=== PATIENT | female | born 1990 | race Asian ===

== ENCOUNTER 2023-01-07 13:35 | Inpatient (IN) | payer OTHER ==
[~2023-01-07] VITALS: Ht 165.1 cm; Wt 98.2 kg
[2023-01-10] VITALS (41 sets, daily range): BP systolic 100–151; BP diastolic 57–119; PULSE 60–124; TEMP 97.6–99
--- NOTE | 2023-01-10 07:00 | NUR ---
PT AMBULATING TO THE ROOM WITH SPOUSE. PT DENIES LEAKING OF FLUIDS OR CONTRACTIONS, AND HAS FELT MOVEMENT.
[2023-01-10 07:35] LABS: BASO % 0.2 % (0.0-2.0); EOS # 0.1 K/mm3 (0.0-0.7); EOS % 1.3 % (0.0-4.0); GRAN # 6.6 K/mm3 (1.4-6.5); HEMOGLOBIN 11.3 g/dl (12.5-16.0); LYMPH # 1.9 K/mm3 (1.2-3.4); LYMPH % 19.9 % (20.0-51.0); MEAN CELL VOLUME 83 fl (80.0-100.0); MEAN CORPUSCULAR HEMOGLOBIN 29 pg (27-31); MEAN CORPUSCULAR HGB CONC 35 g/dl (33.0-37.0); MEAN PLATELET VOLUME 11.4 fl (7.4-10.4); MONO # 0.7 K/mm3 (0.1-0.6); MONO % 7.9 % (1.7-9.3); PLATELET COUNT 165 K/mm3 (130-400); RED BLOOD COUNT 3.94 M/mm3 (4.10-5.30); REDCELL DISTRIBUTION WIDTH-CV 12.4 % (11.5-14.5)
[2023-01-10] MEDS ORDERED: PRENATAL TABLET PO (07:40)
[2023-01-10 07:46] LABS: HEMATOCRIT 32.7 % (37.0-47.0)
--- NOTE | 2023-01-10 09:55 | NUR ---
DR. ALFARO AT BESIDE, SVE 2-3, 90, -2. ATTEMPTED AROM AT THIS TIME, UNSURE IF SUCCESSFUL, PT UNABLE TO TOLERATE SVE. STRONG PALPABLE CONTRACTIONS. DO NOT START PIT AT 1145 PREVIOUSLY PLANNED. CONTINUE WITH POC, VORB PER DR. ALFARO. PT MAY HAVE EPIDURAL WHEN DESIRED.
--- NOTE | 2023-01-10 11:00 | NUR ---
PT TO SITTING POSITION FOR EPIDURAL PLACEMENT. DIFFICULTY TRACING EFM D/T MATERNAL POSITIONING. SAHIL RUDOLPH EDUCATED PT REGARDING PLACEMENT, CONSENT SIGNED. PT TOLERATED PROCEDURE. 1024 SINGLE SHOT PER SAHIL RUDOLPH. LR BOLUS INFUSING AT THIS TIME. 1056 EPHEDRINE ADMINSTERED X1 AT THIS TIME FOR DECREASED HEART TONES AND DROP IN MATERNAL BLOOD PRESSURE. EFM TRACING CATEGORY 1 FOLLOWING ADMINISTRATION. PT PLACED IN LL TO CONTINUE RECOVERY.
--- NOTE | 2023-01-10 15:17 | NUR ---
1415: PT COMPLETE/+1. PHYSICIAN NOTIFIED. THIS NURSE BEGINS COACHING PT THROUGH PUSHING EFFORTS. ROOM PREPARED FOR DELIVERY. 1517: OF VIABLE FEMALE PER AT THIS TIME. PLACED ON MATERNAL ABDOMEN. CORD CLAMPED X2 AND CUT BY MOTHER OF BABY PER REQUEST. CARE OF ASSUMED BY SISSY ROMERO. ROSETTE SCHULTE. 1520: OF PLACENTA PER . PITOCIN BOLUS INFUSING PER PROTOCOL. BEGINS REPAIR OF SECOND DEGREE PERINEAL LACERATION AND RIGHT LABIAL SIDEWALL LACERATION. PT TOLERATING PROCEDURE WELL. EPIDURAL REMAINS ON AND FUNCTIONING. MATERNAL VITAL SIGNS STABLE. ROSETTE SCHULTE.
--- NOTE | 2023-01-10 18:07 | NUR ---
PT REPORTS HEAVINESS TO BLE. UNABLE TO RAISE AND HOLD. MATERNAL VITAL SIGNS STABLE. LOCHIA SCANT AT THIS TIME. FUNDUS FIRM WITH MASSAGE AT UMBILICUS. EPIDURAL REMOVED FROM BACK, NO COMPLICATIONS NOTED AT SITE. PT'S SPOUSE ARRIVES WITH SUPPER, PT REQUESTING TO EAT SUPPER THEN MOVE TO ROOM. PO TYLENOL AND MOTRIN ADMINSTERED FOR RECTAL PAIN. PT SITTING UP IN BED EATING AT THIS TIME.
[2023-01-11] VITALS: BP 111/65; PULSE 83; TEMP 98.6
[2023-01-11 05:00] VITALS: BP 100/70; PULSE 70; TEMP 97.6
[2023-01-11 08:10] VITALS: BP 104/68; PULSE 64; TEMP 97.6
[2023-01-11] MEDS ORDERED: IBU600 MG PO (08:33)
--- NOTE | 2023-01-11 09:25 | NUR ---
Initial visit attempt; Family resting, Step Finisher left card offering congratulations and blessings for the of their daughter along with information regarding the availability of Spiritual Care at our hospital.
[2023-01-11 16:25] VITALS: BP 118/77; PULSE 76; TEMP 98
[2023-01-11 19:45] VITALS: BP 116/71; PULSE 79; TEMP 98.6
[2023-01-12 08:30] VITALS: BP 123/69; PULSE 82; TEMP 98.3
== END 2023-01-12 14:20 | disposition home or self-care (01) | DRG 807 ==
LOC: OB 01-09 13:34 → LDR 01-10 06:38 → OB 01-10 06:38
PROVIDERS: ADMIT Obstetrics & Gynecology
PROC: 10E0XZZ Delivery of Products of Conception, External Approach (ICD-10-PCS; principal; 2023-01-10)
PROC: 0KQM0ZZ Repair Perineum Muscle, Open Approach (ICD-10-PCS; 2023-01-10)
PROC: 10907ZC Drainage of Amniotic Fluid, Therapeutic from Products of Conception, Via Natural or Artificial Opening (ICD-10-PCS; 2023-01-10)
PROC: 3E0P7VZ Introduction of Hormone into Female Reproductive, Via Natural or Artificial Opening (ICD-10-PCS; 2023-01-10)
DX: O48.0 Post-term pregnancy (principal); Z37.0 Single live birth; O99.02 Anemia complicating childbirth; D64.9 Anemia, unspecified; O70.1 Second degree perineal laceration during delivery; Z3A.41 41 weeks gestation of pregnancy
CPT/HCPCS: J2590; J2795; J7120